=== PATIENT | female | born 1985 | race Caucasian/White ===

== ENCOUNTER 2019-03-21 14:40 | Emergency (ER) | payer MEDICAID, OTHER ==
[~2019-03-21] VITALS: Ht 162.6 cm; Wt 90.9 kg
[~2019-03-21 14:40] MED LIST: CHOL200059 PO; FLUT16H NASAL; OLAN10TA6 PO
[2019-03-21 15:34] LABS: BASOPHILS % (AUTO) 0.4 % (0.0-2.0); EOSINOPHILS % (AUTO) 2.7 % (1.0-6.0); HEMATOCRIT 37.9 % (36-46); HEMOGLOBIN 12.9 g/dL (12.0-16.0); LYMPHOCYTES # (AUTO) 2.3 K/uL (1.0-4.8); LYMPHOCYTES % (AUTO) 28.6 % (22.0-44.0); MEAN CORPUSCULAR HEMOGLOBIN 31.4 pg (26.0-34.0); MEAN CORPUSCULAR HGB CONC 34.1 G/dL (31.0-37.0); MEAN CORPUSCULAR VOLUME 92 fL (80-100); MONOCYTES # (AUTO) 0.7 K/uL (0.1-1.0); MONOCYTES % (AUTO) 8.7 % (2.0-9.0); NEUTROPHILS # (AUTO) 4.8 K/uL (1.8-7.7); NEUTROPHILS % (AUTO) 59.6 % (40.0-70.0); PLATELET COUNT (AUTO) 216 K/uL (150-450); RED BLOOD CELL COUNT(AUTO) 4.12 MIL/uL (4.00-5.20); RED CELL DISTRIBUTION WIDTH 12.4 % (11.5-14.5)
[2019-03-21 15:44] LABS: ANION GAP 8 mmol/L (8-16); CARBON DIOXIDE 26 mmol/L (22-29); CHLORIDE 104 mmol/L (98-107); CREATININE 0.79 mg/dL (0.60-1.30); GLOMERULAR FILTR. RATE CALC > 60 mL/min (>60); GLUCOSE,RANDOM 113 mg/dL (70-110); POTASSIUM 3.8 mmol/L (3.5-5.1); SODIUM SERUM 138 mmol/L (136-145); UREA NITROGEN, BLOOD 14 mg/dL (7-18)
[2019-03-21 15:57] LABS: ALANINE AMINOTRANSFERASE 14 U/L (12-78); ALKALINE PHOSPHATASE 70 U/L (46-116); ASPARTATE AMINOTRANSFERASE 12 U/L (15-37); BILIRUBIN,TOTAL 0.2 mg/dL (0.1-1.0); HCG,QUANTITATIVE < 1 mIU/mL (0-6)
[2019-03-21 20:51] VITALS: BP 102/67
== END 2019-03-21 21:15 | disposition home or self-care (01) ==
LOC: EMS 14:42
DX: L03.114 Cellulitis of left upper limb (principal); E78.00 Pure hypercholesterolemia, unspecified; E03.9 Hypothyroidism, unspecified; F20.9 Schizophrenia, unspecified; F17.210 Nicotine dependence, cigarettes, uncomplicated; Z79.899 Other long term (current) drug therapy
CPT/HCPCS: 36415; 80053; 84702; 85025; 99284; G0480

== ENCOUNTER 2019-12-26 10:46 | Inpatient (IN) | payer MEDICAID ==
[~2019-12-26 10:46] MED LIST changes: +CHOL200016 PO; -CHOL200059 PO
[2019-12-26] MEDS ORDERED: GLUCAGON,HUMAN RECOMBINANT 1 MG VIAL IM PRN (15:00)
[2019-12-26] MEDS: CHOLECALCIFEROL (VIT D3) 1,000 UNITS [25 MCG] TABLET PO SCH (16:22)
[2019-12-26] MEDS: FLUTICASONE PROPIONATE 50 MCG/SPRAY 16 GM NASAL SPRAY NASAL SCH (16:22)
[2019-12-26 17:09] LABS: GLUCOMETER DEV NAME(LOC) BV3N.; GLUCOSE,POINT OF CARE 133 MG/DL (70-110)
[2019-12-26] MEDS: OLANZapine 10 MG RAPDIS TABLET PO SCH (21:00)
[2019-12-27 05:04] VITALS: BP 124/66
[2019-12-27] MEDS: FLUTICASONE PROPIONATE 50 MCG/SPRAY 16 GM NASAL SPRAY NASAL SCH ×2 (09:00→17:18)
[2019-12-27] MEDS: CHOLECALCIFEROL (VIT D3) 1,000 UNITS [25 MCG] TABLET PO SCH ×2 (09:00→17:18)
[2019-12-27 17:47] LABS: GLUCOMETER DEV NAME(LOC) BV3N.; GLUCOSE,POINT OF CARE 98 MG/DL (70-110)
[2019-12-27] MEDS ORDERED: HALOPERIDOL LACTATE 5 MG/ML VIAL IM PRN (20:30)
[2019-12-27] MEDS: OLANZapine 10 MG RAPDIS TABLET PO SCH (20:51)
[2019-12-28] MEDS: FLUTICASONE PROPIONATE 50 MCG/SPRAY 16 GM NASAL SPRAY NASAL SCH ×2 (09:00→16:51)
[2019-12-28] MEDS: CHOLECALCIFEROL (VIT D3) 1,000 UNITS [25 MCG] TABLET PO SCH ×2 (09:00→16:51)
[2019-12-28] MEDS: OLANZapine 10 MG RAPDIS TABLET PO SCH (21:11)
[2019-12-29] MEDS: FLUTICASONE PROPIONATE 50 MCG/SPRAY 16 GM NASAL SPRAY NASAL SCH ×2 (08:56→16:40)
[2019-12-29] MEDS: CHOLECALCIFEROL (VIT D3) 1,000 UNITS [25 MCG] TABLET PO SCH ×2 (08:56→16:40)
[2019-12-29] MEDS: HALOPERIDOL 5 MG TABLET PO PRN (16:39)
[2019-12-29] MEDS: LORazepam 2 MG TABLET PO PRN (16:39)
[2019-12-29 16:50] LABS: GLUCOMETER DEV NAME(LOC) BV3N.; GLUCOSE,POINT OF CARE 135 MG/DL (70-110)
[2019-12-29] MEDS: OLANZapine 10 MG RAPDIS TABLET PO SCH (21:04)
[2019-12-30] MEDS: CHOLECALCIFEROL (VIT D3) 1,000 UNITS [25 MCG] TABLET PO SCH ×2 (08:38→17:00)
[2019-12-30] MEDS: FLUTICASONE PROPIONATE 50 MCG/SPRAY 16 GM NASAL SPRAY NASAL SCH ×2 (08:38→17:00)
[2019-12-30] MEDS ORDERED: IVERMECTIN 3 MG TABLET PO ONE (09:15)
[2019-12-30] MEDS ORDERED: PERMETHRIN 1% 60 ML LOTION TP ONE (10:15)
[2019-12-30] MEDS: HALOPERIDOL 5 MG TABLET PO PRN (16:58)
[2019-12-30] MEDS: LORazepam 2 MG TABLET PO PRN (16:58)
[2019-12-30] MEDS: OLANZapine 10 MG RAPDIS TABLET PO SCH (20:31)
[2019-12-31 00:30] VITALS: BP 100/71
[2019-12-31] MEDS: FLUTICASONE PROPIONATE 50 MCG/SPRAY 16 GM NASAL SPRAY NASAL SCH ×2 (08:45→17:00)
[2019-12-31] MEDS: CHOLECALCIFEROL (VIT D3) 1,000 UNITS [25 MCG] TABLET PO SCH ×2 (08:46→17:26)
[2019-12-31] MEDS ORDERED: LORazepam 2 MG/ML VIAL IM ONE (16:00)
[2019-12-31] MEDS ORDERED: HALOPERIDOL LACTATE 5 MG/ML VIAL IM ONE (16:00)
[2019-12-31 16:01] VITALS: BP 136/88
[2019-12-31] MEDS ORDERED: PERMETHRIN 1% 60 ML LOTION TP ONE (16:15)
[2019-12-31 17:24] LABS: GLUCOMETER DEV NAME(LOC) BV3N.; GLUCOSE,POINT OF CARE 147 MG/DL (70-110)
[2019-12-31] MEDS: INSULIN LISPRO 100 UNITS/ML SQ PRN (17:26)
[2019-12-31] MEDS: OLANZapine 10 MG RAPDIS TABLET PO SCH (21:24)
[2020-01-01 05:18] VITALS: BP 125/86
[2020-01-01] MEDS: CHOLECALCIFEROL (VIT D3) 1,000 UNITS [25 MCG] TABLET PO SCH ×2 (09:00→16:34)
[2020-01-01] MEDS: FLUTICASONE PROPIONATE 50 MCG/SPRAY 16 GM NASAL SPRAY NASAL SCH ×2 (09:00→16:34)
[2020-01-01] MEDS: INSULIN LISPRO 100 UNITS/ML SQ PRN ×2 (11:17→16:36)
[2020-01-01 12:22] LABS: GLUCOMETER DEV NAME(LOC) BV3N.; GLUCOSE,POINT OF CARE 157 MG/DL (70-110)
[2020-01-01 16:05] VITALS: BP 106/94
[2020-01-01] MEDS: HALOPERIDOL 5 MG TABLET PO PRN (16:34)
[2020-01-01 17:01] LABS: GLUCOMETER DEV NAME(LOC) BV3N.; GLUCOSE,POINT OF CARE 180 MG/DL (70-110)
[2020-01-01] MEDS: OLANZapine 10 MG RAPDIS TABLET PO SCH (20:29)
[2020-01-02] MEDS ORDERED: LORazepam 2 MG/ML VIAL ONE (02:17)
[2020-01-02] MEDS ORDERED: DiphenhydrAMINE HCL 50 MG/ML VIAL ONE (02:17)
[2020-01-02] MEDS ORDERED: LORazepam 2 MG/ML VIAL IM ONE (02:30)
[2020-01-02] MEDS ORDERED: DiphenhydrAMINE HCL 50 MG/ML VIAL IM ONE (02:30)
[2020-01-02] MEDS ORDERED: HALOPERIDOL LACTATE 5 MG/ML VIAL IM ONE (02:30)
[2020-01-02] MEDS: CHOLECALCIFEROL (VIT D3) 1,000 UNITS [25 MCG] TABLET PO SCH ×2 (08:43→17:18)
[2020-01-02] MEDS: FLUTICASONE PROPIONATE 50 MCG/SPRAY 16 GM NASAL SPRAY NASAL SCH ×2 (08:43→17:17)
[2020-01-02] MEDS: HALOPERIDOL 5 MG TABLET PO PRN (17:18)
[2020-01-02 17:31] LABS: GLUCOMETER DEV NAME(LOC) BV3N.; GLUCOSE,POINT OF CARE 104 MG/DL (70-110)
[2020-01-02] MEDS: OLANZapine 10 MG RAPDIS TABLET PO SCH (20:38)
[2020-01-03 03:08] VITALS: BP 103/65
[2020-01-03] MEDS: CHOLECALCIFEROL (VIT D3) 1,000 UNITS [25 MCG] TABLET PO SCH ×2 (08:50→17:06)
[2020-01-03] MEDS: FLUTICASONE PROPIONATE 50 MCG/SPRAY 16 GM NASAL SPRAY NASAL SCH ×2 (08:51→17:00)
[2020-01-03] MEDS: LORazepam 2 MG TABLET PO PRN ×2 (10:34→19:10)
[2020-01-03] MEDS: HALOPERIDOL 5 MG TABLET PO PRN ×2 (10:34→19:10)
[2020-01-03 16:10] VITALS: BP 101/74
[2020-01-03] MEDS: OLANZapine 10 MG RAPDIS TABLET PO SCH (20:15)
[2020-01-04 05:23] VITALS: BP 130/83
[2020-01-04] MEDS: CHOLECALCIFEROL (VIT D3) 1,000 UNITS [25 MCG] TABLET PO SCH ×2 (09:00→18:34)
[2020-01-04] MEDS: FLUTICASONE PROPIONATE 50 MCG/SPRAY 16 GM NASAL SPRAY NASAL SCH ×2 (09:00→18:45)
[2020-01-04 09:38] LABS: ALANINE AMINOTRANSFERASE 22 U/L (12-78); ALBUMIN 2.8 g/dL (3.4-5.0); ALKALINE PHOSPHATASE 76 U/L (46-116); ANION GAP 5 mmol/L (8-16); ASPARTATE AMINOTRANSFERASE 18 U/L (15-37); CALCIUM, TOTAL 8.8 mg/dL (8.8-10.5); CARBON DIOXIDE 27 mmol/L (22-29); CHLORIDE 102 mmol/L (98-107); CREATININE 0.73 mg/dL (0.60-1.30); GLOMERULAR FILTR. RATE CALC > 60 mL/min (>60); GLUCOSE,RANDOM 177 mg/dL (70-110); POTASSIUM 4.3 mmol/L (3.5-5.1); SODIUM SERUM 134 mmol/L (136-145); TOTAL PROTEIN, SERUM 6.6 g/dL (6.4-8.2); UREA NITROGEN, BLOOD 10 mg/dL (7-18)
[2020-01-04 10:18] LABS: BILIRUBIN,TOTAL 0.1 mg/dL (0.1-1.0)
[2020-01-04] MEDS ORDERED: LORazepam 2 MG/ML VIAL ONE (18:27)
[2020-01-04] MEDS ORDERED: LORazepam 2 MG/ML VIAL IM ONE (18:30)
[2020-01-04] MEDS ORDERED: DiphenhydrAMINE HCL 50 MG/ML VIAL IM ONE (18:30)
[2020-01-04] MEDS ORDERED: HALOPERIDOL LACTATE 5 MG/ML VIAL IM ONE (18:30)
[2020-01-04] MEDS: LORazepam 2 MG TABLET PO PRN (18:32)
[2020-01-04] MEDS: HALOPERIDOL 5 MG TABLET PO PRN (18:35)
[2020-01-04] MEDS: OLANZapine 10 MG RAPDIS TABLET PO SCH (20:43)
[2020-01-05 05:28] VITALS: BP 120/68
[2020-01-05] MEDS: CHOLECALCIFEROL (VIT D3) 1,000 UNITS [25 MCG] TABLET PO SCH ×2 (09:52→16:18)
[2020-01-05] MEDS: FLUTICASONE PROPIONATE 50 MCG/SPRAY 16 GM NASAL SPRAY NASAL SCH ×2 (09:54→16:18)
[2020-01-05] MEDS: HALOPERIDOL 5 MG TABLET PO PRN (16:18)
[2020-01-05] MEDS: LORazepam 2 MG TABLET PO PRN (16:18)
[2020-01-05] MEDS: ZOLPIDEM TARTRATE 10 MG TABLET PO PRN (20:34)
[2020-01-05] MEDS: OLANZapine 10 MG RAPDIS TABLET PO SCH (20:34)
[2020-01-06 00:10] VITALS: BP 113/68
[2020-01-06 08:07] VITALS: BP 104/65
[2020-01-06] MEDS: CHOLECALCIFEROL (VIT D3) 1,000 UNITS [25 MCG] TABLET PO SCH ×2 (08:39→16:49)
[2020-01-06] MEDS: FLUTICASONE PROPIONATE 50 MCG/SPRAY 16 GM NASAL SPRAY NASAL SCH ×2 (08:40→16:49)
[2020-01-06 16:15] VITALS: BP 115/75
[2020-01-06] MEDS: HALOPERIDOL 5 MG TABLET PO PRN (16:19)
[2020-01-06] MEDS: LORazepam 2 MG TABLET PO PRN (16:19)
[2020-01-06] MEDS: OLANZapine 10 MG RAPDIS TABLET PO SCH (20:57)
[2020-01-07 00:25] VITALS: BP 104/72
[2020-01-07] MEDS: ZOLPIDEM TARTRATE 10 MG TABLET PO PRN (01:39)
[2020-01-07] MEDS: LORazepam 2 MG TABLET PO PRN (01:39)
[2020-01-07] MEDS: FLUTICASONE PROPIONATE 50 MCG/SPRAY 16 GM NASAL SPRAY NASAL SCH ×2 (09:00→17:02)
[2020-01-07] MEDS: CHOLECALCIFEROL (VIT D3) 1,000 UNITS [25 MCG] TABLET PO SCH ×2 (09:00→17:02)
[2020-01-07] MEDS: OLANZapine 10 MG RAPDIS TABLET PO SCH (20:40)
[2020-01-08 05:06] VITALS: BP 101/68
[2020-01-08 07:56] LABS: BASOPHILS % (AUTO) 0.5 % (0.0-2.0); EOSINOPHILS % (AUTO) 3.9 % (1.0-6.0); HEMATOCRIT 40.5 % (36-46); HEMOGLOBIN 13.5 g/dL (12.0-16.0); MEAN CORPUSCULAR HEMOGLOBIN 28.7 pg (26.0-34.0); MEAN CORPUSCULAR HGB CONC 33.3 G/dL (31.0-37.0); MEAN CORPUSCULAR VOLUME 86 fL (80-100); MONOCYTES # (AUTO) 0.5 K/uL (0.1-1.0); MONOCYTES % (AUTO) 5.7 % (2.0-9.0); NEUTROPHILS # (AUTO) 4.9 K/uL (1.8-7.7); NEUTROPHILS % (AUTO) 55.9 % (40.0-70.0); PLATELET COUNT (AUTO) 369 K/uL (150-450); RED CELL DISTRIBUTION WIDTH 13.1 % (11.5-14.5)
[2020-01-08 08:14] LABS: APPEARANCE,URINE CLOUDY (CLEAR); BILIRUBIN,URINE NEGATIVE (NEGATIVE); GLUCOSE, URINE (UA) NEGATIVE (NEGATIVE); KETONES,URINE NEGATIVE (NEGATIVE); LEUKOCYTE ESTERASE ,URINE TRACE (NEGATIVE); NITRATE,URINE NEGATIVE (NEGATIVE); OCCULT BLOOD,URINE NEGATIVE (NEGATIVE); PH,URINE 7.5 (5.0-8.0); PROTEIN,URINE NEGATIVE (NEGATIVE); UROBILINOGEN,URINE 0.2 mg/dL (<=1.0)
[2020-01-08 08:21] LABS: AMPHET/METH SCREEN,URINE NEGATIVE (NEGATIVE); BARBITURATE SCREEN, URINE NEGATIVE (NEGATIVE); BENZODIAZEPINES SCREEN,URINE NEGATIVE (NEGATIVE); CANNABINOID SCREEN,URINE NEGATIVE (NEGATIVE); COCAINE SCREEN,URINE NEGATIVE (NEGATIVE); METHADONE SCREEN, URINE NEGATIVE (NEGATIVE); OPIATE SCREEN,URINE NEGATIVE (NEGATIVE)
[2020-01-08 08:23] LABS: PHENCYCLIDINE SCREEN,URINE NEGATIVE (NEGATIVE)
[2020-01-08] MEDS: FLUTICASONE PROPIONATE 50 MCG/SPRAY 16 GM NASAL SPRAY NASAL SCH ×3 (09:00→16:36)
[2020-01-08] MEDS: CHOLECALCIFEROL (VIT D3) 1,000 UNITS [25 MCG] TABLET PO SCH ×3 (09:00→16:36)
[2020-01-08 09:01] LABS: BACTERIA,URINE None Seen /HPF (None Seen); RBC,URINE None Seen /HPF (0-2); WBC,URINE 0-2 /HPF (0-5)
[2020-01-08] MEDS: LORazepam 2 MG TABLET PO PRN (12:20)
[2020-01-08 16:34] VITALS: BP 103/67
[2020-01-08] MEDS: OLANZapine 10 MG RAPDIS TABLET PO SCH (20:55)
[2020-01-09 04:18] VITALS: BP 100/62
[2020-01-09] MEDS: FLUTICASONE PROPIONATE 50 MCG/SPRAY 16 GM NASAL SPRAY NASAL SCH ×2 (09:36→16:13)
[2020-01-09] MEDS: NITROFURANTOIN/NITROFURAN MAC 100 MG CAPSULE [MACROBID] PO SCH ×2 (09:37→16:13)
[2020-01-09] MEDS: CHOLECALCIFEROL (VIT D3) 1,000 UNITS [25 MCG] TABLET PO SCH ×2 (09:37→16:13)
[2020-01-09] MEDS: LORazepam 2 MG TABLET PO PRN ×2 (09:42→16:14)
[2020-01-09] MEDS: HALOPERIDOL 5 MG TABLET PO PRN (16:14)
[2020-01-09 18:50] VITALS: BP 107/57
[2020-01-09 19:00] VITALS: BP 105/60
[2020-01-09 20:00] VITALS: BP 107/63
[2020-01-09] MEDS: OLANZapine 10 MG RAPDIS TABLET PO SCH (20:52)
[2020-01-10] MEDS: LORazepam 2 MG TABLET PO PRN ×2 (02:46→13:14)
[2020-01-10 05:21] VITALS: BP 129/69
[2020-01-10 08:18] VITALS: BP 109/69
[2020-01-10] MEDS: NITROFURANTOIN/NITROFURAN MAC 100 MG CAPSULE [MACROBID] PO SCH ×2 (08:59→16:10)
[2020-01-10] MEDS: CHOLECALCIFEROL (VIT D3) 1,000 UNITS [25 MCG] TABLET PO SCH ×2 (09:01→16:10)
[2020-01-10] MEDS: FLUTICASONE PROPIONATE 50 MCG/SPRAY 16 GM NASAL SPRAY NASAL SCH ×2 (09:02→16:11)
[2020-01-10 10:16] VITALS: BP 109/69
[2020-01-10 16:09] VITALS: BP 112/71
[2020-01-10] MEDS ORDERED: TUBERCULIN, PURIFIED PROTEIN DERIVATIVE 5 TU/0.1 ML SYRINGE ID ONE (16:15)
[2020-01-10] MEDS: OLANZapine 10 MG RAPDIS TABLET PO SCH (20:00)
[2020-01-11 00:55] VITALS: BP 123/63
[2020-01-11 09:00] VITALS: BP 106/62
[2020-01-11] MEDS: FLUTICASONE PROPIONATE 50 MCG/SPRAY 16 GM NASAL SPRAY NASAL SCH ×2 (09:00→16:27)
[2020-01-11] MEDS: NITROFURANTOIN/NITROFURAN MAC 100 MG CAPSULE [MACROBID] PO SCH ×2 (09:42→16:24)
[2020-01-11] MEDS: CHOLECALCIFEROL (VIT D3) 1,000 UNITS [25 MCG] TABLET PO SCH ×2 (09:42→16:24)
[2020-01-11] MEDS: LORazepam 2 MG TABLET PO PRN (09:54)
[2020-01-11 16:20] VITALS: BP 102/59
[2020-01-11] MEDS: OLANZapine 10 MG RAPDIS TABLET PO SCH (20:06)
[2020-01-12 04:29] VITALS: BP 128/84
[2020-01-12] MEDS ORDERED: TUBERCULIN, PURIFIED PROTEIN DERIVATIVE 5 TU/0.1 ML SYRINGE ID ONE (09:00)
[2020-01-12] MEDS: CHOLECALCIFEROL (VIT D3) 1,000 UNITS [25 MCG] TABLET PO SCH ×2 (09:34→16:19)
[2020-01-12] MEDS: FLUTICASONE PROPIONATE 50 MCG/SPRAY 16 GM NASAL SPRAY NASAL SCH ×2 (09:37→16:22)
[2020-01-12] MEDS: NITROFURANTOIN/NITROFURAN MAC 100 MG CAPSULE [MACROBID] PO SCH ×2 (09:37→16:20)
[2020-01-12] MEDS: LORazepam 2 MG TABLET PO PRN ×2 (09:39→16:18)
[2020-01-12] MEDS: HALOPERIDOL 5 MG TABLET PO PRN (16:18)
[2020-01-12 16:20] VITALS: BP 121/60
[2020-01-12] MEDS: ZOLPIDEM TARTRATE 10 MG TABLET PO PRN (20:50)
[2020-01-12] MEDS: OLANZapine 10 MG RAPDIS TABLET PO SCH (20:50)
[2020-01-13] MEDS: LORazepam 2 MG TABLET PO PRN ×2 (01:10→16:28)
[2020-01-13] MEDS: HALOPERIDOL 5 MG TABLET PO PRN ×2 (01:10→16:28)
[2020-01-13 02:27] VITALS: BP 112/64
[2020-01-13] MEDS: NITROFURANTOIN/NITROFURAN MAC 100 MG CAPSULE [MACROBID] PO SCH ×2 (08:41→16:28)
[2020-01-13] MEDS: FLUTICASONE PROPIONATE 50 MCG/SPRAY 16 GM NASAL SPRAY NASAL SCH ×2 (08:42→16:28)
[2020-01-13] MEDS: CHOLECALCIFEROL (VIT D3) 1,000 UNITS [25 MCG] TABLET PO SCH ×2 (08:42→16:27)
[2020-01-13 16:25] VITALS: BP 102/56
[2020-01-13] MEDS: OLANZapine 10 MG RAPDIS TABLET PO SCH (20:45)
[2020-01-13] MEDS: ZOLPIDEM TARTRATE 10 MG TABLET PO PRN (20:45)
[2020-01-14] MEDS: LORazepam 2 MG TABLET PO PRN ×2 (01:55→13:54)
[2020-01-14] MEDS: HALOPERIDOL 5 MG TABLET PO PRN (01:55)
[2020-01-14 04:54] VITALS: BP 124/63
[2020-01-14] MEDS: FLUTICASONE PROPIONATE 50 MCG/SPRAY 16 GM NASAL SPRAY NASAL SCH ×2 (09:20→16:34)
[2020-01-14] MEDS: CHOLECALCIFEROL (VIT D3) 1,000 UNITS [25 MCG] TABLET PO SCH ×2 (09:20→16:34)
[2020-01-14 16:06] VITALS: BP 106/74
[2020-01-14] MEDS: OLANZapine 10 MG RAPDIS TABLET PO SCH (20:06)
[2020-01-15 04:22] VITALS: BP 134/74
[2020-01-15] MEDS: LORazepam 2 MG TABLET PO PRN ×2 (08:17→16:11)
[2020-01-15] MEDS: FLUTICASONE PROPIONATE 50 MCG/SPRAY 16 GM NASAL SPRAY NASAL SCH ×2 (08:18→16:10)
[2020-01-15] MEDS: CHOLECALCIFEROL (VIT D3) 1,000 UNITS [25 MCG] TABLET PO SCH ×2 (08:19→16:11)
[2020-01-15] MEDS: HALOPERIDOL 5 MG TABLET PO PRN (16:11)
[2020-01-15 17:02] VITALS: BP 111/63
[2020-01-15] MEDS: ZOLPIDEM TARTRATE 10 MG TABLET PO PRN (20:31)
[2020-01-15] MEDS: OLANZapine 10 MG RAPDIS TABLET PO SCH (20:31)
[2020-01-16 02:50] VITALS: BP 120/78
[2020-01-16] MEDS: CHOLECALCIFEROL (VIT D3) 1,000 UNITS [25 MCG] TABLET PO SCH ×2 (08:54→16:35)
[2020-01-16] MEDS: LORazepam 2 MG TABLET PO PRN ×2 (08:55→16:54)
[2020-01-16] MEDS: FLUTICASONE PROPIONATE 50 MCG/SPRAY 16 GM NASAL SPRAY NASAL SCH ×2 (08:55→16:35)
[2020-01-16 16:13] VITALS: BP 123/79
[2020-01-16] MEDS: OLANZapine 10 MG RAPDIS TABLET PO SCH (20:31)
[2020-01-17 00:53] VITALS: BP 118/72
[2020-01-17] MEDS: CHOLECALCIFEROL (VIT D3) 1,000 UNITS [25 MCG] TABLET PO SCH ×2 (09:34→17:18)
[2020-01-17] MEDS: FLUTICASONE PROPIONATE 50 MCG/SPRAY 16 GM NASAL SPRAY NASAL SCH ×2 (09:34→17:19)
[2020-01-17 16:38] VITALS: BP 113/73
[2020-01-17] MEDS: LORazepam 2 MG TABLET PO PRN (17:19)
[2020-01-17] MEDS: HALOPERIDOL 5 MG TABLET PO PRN (17:19)
[2020-01-17] MEDS: OLANZapine 10 MG RAPDIS TABLET PO SCH (20:20)
[2020-01-17] MEDS: ZOLPIDEM TARTRATE 10 MG TABLET PO PRN (21:30)
[2020-01-18 01:51] VITALS: BP 127/79
[2020-01-18] MEDS: FLUTICASONE PROPIONATE 50 MCG/SPRAY 16 GM NASAL SPRAY NASAL SCH ×2 (08:55→17:05)
[2020-01-18] MEDS: CHOLECALCIFEROL (VIT D3) 1,000 UNITS [25 MCG] TABLET PO SCH ×2 (08:55→17:04)
[2020-01-18] MEDS: LORazepam 2 MG TABLET PO PRN ×2 (08:55→17:04)
[2020-01-18] MEDS: HALOPERIDOL 5 MG TABLET PO PRN ×2 (09:53→17:47)
[2020-01-18 16:26] VITALS: BP 123/71
[2020-01-18] MEDS: ZOLPIDEM TARTRATE 10 MG TABLET PO PRN (21:13)
[2020-01-18] MEDS: OLANZapine 10 MG RAPDIS TABLET PO SCH (21:13)
[2020-01-19 01:03] VITALS: BP 112/78
[2020-01-19 08:44] VITALS: BP 119/73
[2020-01-19] MEDS: LORazepam 2 MG TABLET PO PRN (10:07)
[2020-01-19] MEDS: CHOLECALCIFEROL (VIT D3) 1,000 UNITS [25 MCG] TABLET PO SCH ×2 (10:07→17:09)
[2020-01-19] MEDS: FLUTICASONE PROPIONATE 50 MCG/SPRAY 16 GM NASAL SPRAY NASAL SCH ×2 (10:07→17:09)
[2020-01-19] MEDS: HALOPERIDOL 5 MG TABLET PO PRN (17:09)
[2020-01-19] MEDS: OLANZapine 10 MG RAPDIS TABLET PO SCH (20:47)
[2020-01-20 01:24] VITALS: BP 138/60
[2020-01-20 08:32] VITALS: BP 118/79
[2020-01-20] MEDS: CHOLECALCIFEROL (VIT D3) 1,000 UNITS [25 MCG] TABLET PO SCH ×2 (09:21→16:49)
[2020-01-20] MEDS: LORazepam 2 MG TABLET PO PRN (09:21)
[2020-01-20] MEDS: FLUTICASONE PROPIONATE 50 MCG/SPRAY 16 GM NASAL SPRAY NASAL SCH ×2 (09:33→16:50)
[2020-01-20 16:13] VITALS: BP 119/84
[2020-01-20] MEDS: OLANZapine 10 MG RAPDIS TABLET PO SCH (20:41)
[2020-01-21 01:19] VITALS: BP 111/64
[2020-01-21] MEDS: CHOLECALCIFEROL (VIT D3) 1,000 UNITS [25 MCG] TABLET PO SCH ×2 (09:00→16:22)
[2020-01-21] MEDS: FLUTICASONE PROPIONATE 50 MCG/SPRAY 16 GM NASAL SPRAY NASAL SCH ×2 (09:00→16:22)
[2020-01-21] MEDS: HALOPERIDOL 5 MG TABLET PO PRN ×3 (09:53→20:02)
[2020-01-21 17:34] VITALS: BP 102/67
[2020-01-21] MEDS: OLANZapine 10 MG RAPDIS TABLET PO SCH (20:02)
[2020-01-22 06:07] VITALS: BP 124/76
[2020-01-22 08:00] VITALS: BP 120/82
[2020-01-22] MEDS: CHOLECALCIFEROL (VIT D3) 1,000 UNITS [25 MCG] TABLET PO SCH ×2 (08:45→16:06)
[2020-01-22] MEDS: FLUTICASONE PROPIONATE 50 MCG/SPRAY 16 GM NASAL SPRAY NASAL SCH ×2 (08:45→16:11)
[2020-01-22] MEDS: HALOPERIDOL 5 MG TABLET PO PRN ×2 (08:45→16:06)
[2020-01-22 16:17] VITALS: BP 134/63
[2020-01-22] MEDS ORDERED: LORazepam 2 MG/ML VIAL ONE (18:13)
[2020-01-22] MEDS ORDERED: DiphenhydrAMINE HCL 50 MG/ML VIAL ONE (18:14)
[2020-01-22] MEDS ORDERED: LORazepam 2 MG/ML VIAL IM ONE (18:15)
[2020-01-22] MEDS ORDERED: DiphenhydrAMINE HCL 50 MG/ML VIAL IM ONE (18:15)
[2020-01-22] MEDS ORDERED: HALOPERIDOL LACTATE 5 MG/ML VIAL IM ONE (18:15)
[2020-01-22] MEDS: OLANZapine 10 MG RAPDIS TABLET PO SCH (20:32)
[2020-01-23 00:57] VITALS: BP 135/70
[2020-01-23] MEDS: CHOLECALCIFEROL (VIT D3) 1,000 UNITS [25 MCG] TABLET PO SCH ×2 (09:00→16:41)
[2020-01-23] MEDS: FLUTICASONE PROPIONATE 50 MCG/SPRAY 16 GM NASAL SPRAY NASAL SCH ×2 (09:00→16:40)
[2020-01-23] MEDS: HALOPERIDOL 5 MG TABLET PO PRN ×3 (09:40→20:42)
[2020-01-23 17:16] VITALS: BP 99/60
[2020-01-23 19:45] VITALS: BP 106/75
[2020-01-23] MEDS: OLANZapine 10 MG RAPDIS TABLET PO SCH (20:12)
[2020-01-24 03:26] VITALS: BP 116/77
[2020-01-24] MEDS: CHOLECALCIFEROL (VIT D3) 1,000 UNITS [25 MCG] TABLET PO SCH ×2 (09:00→16:45)
[2020-01-24] MEDS: FLUTICASONE PROPIONATE 50 MCG/SPRAY 16 GM NASAL SPRAY NASAL SCH ×2 (09:00→16:45)
[2020-01-24] MEDS: HALOPERIDOL 5 MG TABLET PO PRN ×3 (12:31→22:11)
[2020-01-24] MEDS: NICOTINE 21 MG/24 HOUR PATCH TD PRN (18:12)
[2020-01-24 18:15] VITALS: BP 113/72
[2020-01-24] MEDS: OLANZapine 10 MG RAPDIS TABLET PO SCH (20:35)
[2020-01-25] MEDS: HALOPERIDOL 5 MG TABLET PO PRN ×2 (02:27→18:17)
[2020-01-25 04:41] VITALS: BP 114/73
[2020-01-25] MEDS: CHOLECALCIFEROL (VIT D3) 1,000 UNITS [25 MCG] TABLET PO SCH ×2 (08:28→17:17)
[2020-01-25] MEDS: FLUTICASONE PROPIONATE 50 MCG/SPRAY 16 GM NASAL SPRAY NASAL SCH ×2 (08:29→17:17)
[2020-01-25 10:22] VITALS: BP 123/78
[2020-01-25 18:03] VITALS: BP 126/66
[2020-01-25] MEDS: NICOTINE 21 MG/24 HOUR PATCH TD PRN (19:18)
[2020-01-25] MEDS: OLANZapine 10 MG RAPDIS TABLET PO SCH (21:29)
[2020-01-26 04:45] VITALS: BP 116/68
[2020-01-26 08:36] VITALS: BP 134/62
[2020-01-26] MEDS: CHOLECALCIFEROL (VIT D3) 1,000 UNITS [25 MCG] TABLET PO SCH ×2 (10:11→16:28)
[2020-01-26] MEDS: FLUTICASONE PROPIONATE 50 MCG/SPRAY 16 GM NASAL SPRAY NASAL SCH ×2 (10:11→16:29)
[2020-01-26] MEDS: HALOPERIDOL 5 MG TABLET PO PRN ×3 (10:12→20:32)
[2020-01-26 18:33] VITALS: BP 138/79
[2020-01-26] MEDS: OLANZapine 10 MG RAPDIS TABLET PO SCH (20:32)
[2020-01-27 04:30] VITALS: BP 128/76
[2020-01-27 08:37] VITALS: BP 116/74
[2020-01-27] MEDS: FLUTICASONE PROPIONATE 50 MCG/SPRAY 16 GM NASAL SPRAY NASAL SCH ×2 (08:51→17:24)
[2020-01-27] MEDS: CHOLECALCIFEROL (VIT D3) 1,000 UNITS [25 MCG] TABLET PO SCH ×2 (08:52→17:24)
[2020-01-27] MEDS: HALOPERIDOL 5 MG TABLET PO PRN ×2 (08:53→17:25)
[2020-01-27 16:18] VITALS: BP 110/66
[2020-01-27] MEDS ORDERED: DiphenhydrAMINE HCL 50 MG/ML VIAL IM ONE (17:15)
[2020-01-27] MEDS ORDERED: LORazepam 2 MG/ML VIAL IM ONE (17:15)
[2020-01-27] MEDS ORDERED: HALOPERIDOL LACTATE 5 MG/ML VIAL IM ONE (17:15)
[2020-01-27] MEDS: OLANZapine 10 MG RAPDIS TABLET PO SCH (20:24)
[2020-01-28 02:21] VITALS: BP 120/68
[2020-01-28 08:40] VITALS: BP 122/76
[2020-01-28] MEDS: CHOLECALCIFEROL (VIT D3) 1,000 UNITS [25 MCG] TABLET PO SCH ×2 (09:00→17:56)
[2020-01-28] MEDS: FLUTICASONE PROPIONATE 50 MCG/SPRAY 16 GM NASAL SPRAY NASAL SCH ×2 (09:00→22:10)
[2020-01-28 17:55] VITALS: BP 124/67
[2020-01-28] MEDS: OLANZapine 10 MG RAPDIS TABLET PO SCH (21:06)
[2020-01-29 04:53] VITALS: BP 120/72
[2020-01-29] MEDS: CHOLECALCIFEROL (VIT D3) 1,000 UNITS [25 MCG] TABLET PO SCH ×2 (08:47→16:35)
[2020-01-29] MEDS: FLUTICASONE PROPIONATE 50 MCG/SPRAY 16 GM NASAL SPRAY NASAL SCH ×2 (08:47→17:18)
[2020-01-29] MEDS: HALOPERIDOL 5 MG TABLET PO PRN ×2 (16:35→20:16)
[2020-01-29 16:56] VITALS: BP 113/64
[2020-01-29] MEDS: OLANZapine 10 MG RAPDIS TABLET PO SCH (20:16)
[2020-01-30 05:06] VITALS: BP 111/76
[2020-01-30] MEDS: FLUTICASONE PROPIONATE 50 MCG/SPRAY 16 GM NASAL SPRAY NASAL SCH ×2 (09:00→16:29)
[2020-01-30] MEDS: CHOLECALCIFEROL (VIT D3) 1,000 UNITS [25 MCG] TABLET PO SCH ×2 (09:00→16:29)
[2020-01-30] MEDS: HALOPERIDOL 5 MG TABLET PO PRN ×3 (13:27→23:47)
[2020-01-30 16:12] VITALS: BP 113/53
[2020-01-30] MEDS ORDERED: LORazepam 2 MG/ML VIAL ONE (19:04)
[2020-01-30] MEDS ORDERED: DiphenhydrAMINE HCL 50 MG/ML VIAL ONE (19:04)
[2020-01-30] MEDS ORDERED: DiphenhydrAMINE HCL 50 MG/ML VIAL IM ONE (19:15)
[2020-01-30] MEDS ORDERED: LORazepam 2 MG/ML VIAL IM ONE (19:15)
[2020-01-30] MEDS ORDERED: HALOPERIDOL LACTATE 5 MG/ML VIAL IM ONE (19:15)
[2020-01-30] MEDS: OLANZapine 10 MG RAPDIS TABLET PO SCH (21:07)
[2020-01-31 08:25] VITALS: BP 121/68
[2020-01-31] MEDS: CHOLECALCIFEROL (VIT D3) 1,000 UNITS [25 MCG] TABLET PO SCH ×2 (08:51→18:00)
[2020-01-31] MEDS: HALOPERIDOL 5 MG TABLET PO PRN ×2 (08:52→18:00)
[2020-01-31] MEDS: FLUTICASONE PROPIONATE 50 MCG/SPRAY 16 GM NASAL SPRAY NASAL SCH ×2 (08:52→17:59)
[2020-01-31 18:05] VITALS: BP 109/55
[2020-01-31] MEDS: ACETAMINOPHEN 325 MG TABLET PO PRN (18:19)
[2020-01-31] MEDS: OLANZapine 10 MG RAPDIS TABLET PO SCH (21:26)
[2020-02-01 03:22] VITALS: BP 102/68
[2020-02-01] MEDS: CHOLECALCIFEROL (VIT D3) 1,000 UNITS [25 MCG] TABLET PO SCH ×2 (09:00→16:08)
[2020-02-01] MEDS: FLUTICASONE PROPIONATE 50 MCG/SPRAY 16 GM NASAL SPRAY NASAL SCH ×2 (09:13→16:08)
[2020-02-01] MEDS: HALOPERIDOL 5 MG TABLET PO PRN ×2 (12:23→19:55)
[2020-02-01 17:39] VITALS: BP 100/67
[2020-02-01] MEDS: OLANZapine 10 MG RAPDIS TABLET PO SCH (20:31)
[2020-02-02 03:22] VITALS: BP 99/68
[2020-02-02 08:20] VITALS: BP 121/64
[2020-02-02] MEDS: CHOLECALCIFEROL (VIT D3) 1,000 UNITS [25 MCG] TABLET PO SCH ×2 (09:40→16:51)
[2020-02-02] MEDS: FLUTICASONE PROPIONATE 50 MCG/SPRAY 16 GM NASAL SPRAY NASAL SCH ×2 (09:41→16:51)
[2020-02-02 16:00] VITALS: BP 102/66
[2020-02-02] MEDS: HALOPERIDOL 5 MG TABLET PO PRN (16:51)
[2020-02-02] MEDS: OLANZapine 10 MG RAPDIS TABLET PO SCH (20:17)
[2020-02-03] MEDS: HALOPERIDOL 5 MG TABLET PO PRN ×2 (00:07→14:37)
[2020-02-03 00:27] VITALS: BP 108/60
[2020-02-03 08:21] VITALS: BP 113/71
[2020-02-03] MEDS: FLUTICASONE PROPIONATE 50 MCG/SPRAY 16 GM NASAL SPRAY NASAL SCH ×2 (09:00→16:20)
[2020-02-03] MEDS: CHOLECALCIFEROL (VIT D3) 1,000 UNITS [25 MCG] TABLET PO SCH ×2 (09:00→16:20)
[2020-02-03] MEDS: NICOTINE 21 MG/24 HOUR PATCH TD PRN (14:56)
[2020-02-03 16:29] VITALS: BP 132/92
[2020-02-03] MEDS: OLANZapine 10 MG RAPDIS TABLET PO SCH (20:16)
[2020-02-04] MEDS: HALOPERIDOL 5 MG TABLET PO PRN ×2 (01:47→09:25)
[2020-02-04 02:14] VITALS: BP 109/69
[2020-02-04 08:16] VITALS: BP 109/66
[2020-02-04] MEDS: FLUTICASONE PROPIONATE 50 MCG/SPRAY 16 GM NASAL SPRAY NASAL SCH ×2 (09:02→16:29)
[2020-02-04] MEDS: CHOLECALCIFEROL (VIT D3) 1,000 UNITS [25 MCG] TABLET PO SCH ×2 (09:02→16:29)
[2020-02-04] MEDS: NICOTINE 21 MG/24 HOUR PATCH TD PRN (10:13)
[2020-02-04 16:18] VITALS: BP 133/81
[2020-02-04] MEDS: OLANZapine 10 MG RAPDIS TABLET PO SCH (20:56)
[2020-02-05 01:39] VITALS: BP 123/64
[2020-02-05] MEDS: CHOLECALCIFEROL (VIT D3) 1,000 UNITS [25 MCG] TABLET PO SCH ×3 (08:15→16:23)
[2020-02-05] MEDS: FLUTICASONE PROPIONATE 50 MCG/SPRAY 16 GM NASAL SPRAY NASAL SCH ×3 (08:16→16:24)
[2020-02-05 18:00] VITALS: BP 120/70
[2020-02-05] MEDS: OLANZapine 10 MG RAPDIS TABLET PO SCH (21:19)
[2020-02-06 04:48] VITALS: BP 104/67
[2020-02-06 08:25] VITALS: BP 118/72
[2020-02-06] MEDS: CHOLECALCIFEROL (VIT D3) 1,000 UNITS [25 MCG] TABLET PO SCH ×2 (09:00→16:34)
[2020-02-06] MEDS: HALOPERIDOL 5 MG TABLET PO PRN ×2 (09:11→14:25)
[2020-02-06] MEDS: FLUTICASONE PROPIONATE 50 MCG/SPRAY 16 GM NASAL SPRAY NASAL SCH ×2 (09:11→16:34)
[2020-02-06 16:13] VITALS: BP 106/69
[2020-02-06] MEDS: OLANZapine 10 MG RAPDIS TABLET PO SCH (20:31)
[2020-02-07 01:19] VITALS: BP 101/63
[2020-02-07] MEDS: FLUTICASONE PROPIONATE 50 MCG/SPRAY 16 GM NASAL SPRAY NASAL SCH ×2 (09:29→17:14)
[2020-02-07] MEDS: CHOLECALCIFEROL (VIT D3) 1,000 UNITS [25 MCG] TABLET PO SCH ×2 (09:29→17:13)
[2020-02-07] MEDS: HALOPERIDOL 5 MG TABLET PO PRN (10:42)
[2020-02-07 16:00] VITALS: BP 117/79
[2020-02-07] MEDS: OLANZapine 10 MG RAPDIS TABLET PO SCH (20:24)
[2020-02-08 05:40] VITALS: BP 105/63
[2020-02-08 08:24] VITALS: BP 118/74
[2020-02-08] MEDS: FLUTICASONE PROPIONATE 50 MCG/SPRAY 16 GM NASAL SPRAY NASAL SCH ×2 (09:00→17:51)
[2020-02-08] MEDS: CHOLECALCIFEROL (VIT D3) 1,000 UNITS [25 MCG] TABLET PO SCH ×2 (09:00→17:51)
[2020-02-08] MEDS: NICOTINE 21 MG/24 HOUR PATCH TD PRN (13:21)
[2020-02-08 16:13] VITALS: BP 125/88
[2020-02-08] MEDS: OLANZapine 10 MG RAPDIS TABLET PO SCH (20:50)
[2020-02-08] MEDS: HALOPERIDOL 5 MG TABLET PO PRN (23:58)
[2020-02-09 06:44] VITALS: BP 102/65
[2020-02-09] MEDS: FLUTICASONE PROPIONATE 50 MCG/SPRAY 16 GM NASAL SPRAY NASAL SCH ×2 (09:06→17:38)
[2020-02-09] MEDS: CHOLECALCIFEROL (VIT D3) 1,000 UNITS [25 MCG] TABLET PO SCH ×2 (09:07→17:38)
[2020-02-09 09:20] VITALS: BP 112/74
[2020-02-09] MEDS: HALOPERIDOL 5 MG TABLET PO PRN ×3 (10:01→23:08)
[2020-02-09 16:00] VITALS: BP 104/64
[2020-02-09] MEDS: OLANZapine 10 MG RAPDIS TABLET PO SCH (22:20)
[2020-02-10 01:55] VITALS: BP 112/54
[2020-02-10 08:20] VITALS: BP 118/74
[2020-02-10] MEDS: FLUTICASONE PROPIONATE 50 MCG/SPRAY 16 GM NASAL SPRAY NASAL SCH ×2 (08:49→17:16)
[2020-02-10] MEDS: CHOLECALCIFEROL (VIT D3) 1,000 UNITS [25 MCG] TABLET PO SCH ×2 (08:49→17:16)
[2020-02-10] MEDS: HALOPERIDOL 5 MG TABLET PO PRN ×2 (11:00→17:16)
[2020-02-10 17:43] VITALS: BP 125/70
[2020-02-10] MEDS: OLANZapine 10 MG RAPDIS TABLET PO SCH (21:01)
[2020-02-11 02:03] VITALS: BP 122/92
[2020-02-11] MEDS: CHOLECALCIFEROL (VIT D3) 1,000 UNITS [25 MCG] TABLET PO SCH ×2 (08:18→17:36)
[2020-02-11] MEDS: FLUTICASONE PROPIONATE 50 MCG/SPRAY 16 GM NASAL SPRAY NASAL SCH ×2 (08:18→17:36)
[2020-02-11] MEDS: HALOPERIDOL 5 MG TABLET PO PRN (13:56)
[2020-02-11 16:32] VITALS: BP 120/86
[2020-02-11] MEDS: OLANZapine 10 MG RAPDIS TABLET PO SCH (21:15)
[2020-02-12 04:49] VITALS: BP 118/77
[2020-02-12 08:20] VITALS: BP 101/51
[2020-02-12] MEDS: HALOPERIDOL 5 MG TABLET PO PRN (09:21)
[2020-02-12] MEDS: CHOLECALCIFEROL (VIT D3) 1,000 UNITS [25 MCG] TABLET PO SCH ×2 (09:21→16:04)
[2020-02-12] MEDS: FLUTICASONE PROPIONATE 50 MCG/SPRAY 16 GM NASAL SPRAY NASAL SCH ×2 (09:21→16:05)
[2020-02-12 16:27] VITALS: BP 126/86
[2020-02-12] MEDS: OLANZapine 10 MG RAPDIS TABLET PO SCH (20:50)
[2020-02-13 01:28] VITALS: BP 123/64
[2020-02-13] MEDS: CHOLECALCIFEROL (VIT D3) 1,000 UNITS [25 MCG] TABLET PO SCH ×2 (09:31→16:45)
[2020-02-13] MEDS: FLUTICASONE PROPIONATE 50 MCG/SPRAY 16 GM NASAL SPRAY NASAL SCH ×2 (09:32→17:46)
[2020-02-13] MEDS: HALOPERIDOL 5 MG TABLET PO PRN (14:11)
[2020-02-13 16:58] VITALS: BP 111/66
[2020-02-13] MEDS: OLANZapine 10 MG RAPDIS TABLET PO SCH (21:00)
[2020-02-14 01:06] VITALS: BP 124/73
[2020-02-14] MEDS: FLUTICASONE PROPIONATE 50 MCG/SPRAY 16 GM NASAL SPRAY NASAL SCH ×2 (08:19→16:20)
[2020-02-14] MEDS: CHOLECALCIFEROL (VIT D3) 1,000 UNITS [25 MCG] TABLET PO SCH ×2 (08:19→16:20)
[2020-02-14] MEDS: HALOPERIDOL 5 MG TABLET PO PRN ×2 (08:21→16:23)
[2020-02-14 08:25] VITALS: BP 110/69
[2020-02-14 16:14] VITALS: BP 116/62
[2020-02-14] MEDS: OLANZapine 10 MG RAPDIS TABLET PO SCH (20:37)
[2020-02-15 04:15] VITALS: BP 120/72
[2020-02-15] MEDS: FLUTICASONE PROPIONATE 50 MCG/SPRAY 16 GM NASAL SPRAY NASAL SCH ×2 (08:32→16:28)
[2020-02-15] MEDS: CHOLECALCIFEROL (VIT D3) 1,000 UNITS [25 MCG] TABLET PO SCH ×2 (08:32→16:28)
[2020-02-15] MEDS: HALOPERIDOL 5 MG TABLET PO PRN (14:13)
[2020-02-15 16:19] VITALS: BP 122/74
[2020-02-15] MEDS: OLANZapine 10 MG RAPDIS TABLET PO SCH (20:43)
[2020-02-16 03:23] VITALS: BP 100/68
[2020-02-16] MEDS: FLUTICASONE PROPIONATE 50 MCG/SPRAY 16 GM NASAL SPRAY NASAL SCH ×2 (09:00→16:30)
[2020-02-16] MEDS: CHOLECALCIFEROL (VIT D3) 1,000 UNITS [25 MCG] TABLET PO SCH ×2 (09:00→16:30)
[2020-02-16] MEDS: HALOPERIDOL 5 MG TABLET PO PRN (10:44)
[2020-02-16 16:40] VITALS: BP 112/65
[2020-02-16] MEDS: OLANZapine 10 MG RAPDIS TABLET PO SCH (20:46)
[2020-02-17 00:57] VITALS: BP 119/65
[2020-02-17 08:25] VITALS: BP 116/71
[2020-02-17] MEDS: CHOLECALCIFEROL (VIT D3) 1,000 UNITS [25 MCG] TABLET PO SCH ×2 (08:47→16:36)
[2020-02-17] MEDS: FLUTICASONE PROPIONATE 50 MCG/SPRAY 16 GM NASAL SPRAY NASAL SCH ×2 (08:47→16:36)
[2020-02-17 16:26] VITALS: BP 134/90
[2020-02-17] MEDS: OLANZapine 10 MG RAPDIS TABLET PO SCH (20:46)
[2020-02-17] MEDS: NICOTINE 21 MG/24 HOUR PATCH TD PRN (20:46)
[2020-02-18] MEDS: HALOPERIDOL 5 MG TABLET PO PRN ×3 (00:13→16:10)
[2020-02-18 04:11] VITALS: BP 129/76
[2020-02-18] MEDS: FLUTICASONE PROPIONATE 50 MCG/SPRAY 16 GM NASAL SPRAY NASAL SCH ×2 (08:29→16:13)
[2020-02-18] MEDS: CHOLECALCIFEROL (VIT D3) 1,000 UNITS [25 MCG] TABLET PO SCH ×2 (08:30→16:13)
[2020-02-18 10:00] VITALS: BP 116/70
[2020-02-18 17:27] VITALS: BP 121/74
[2020-02-18] MEDS: OLANZapine 10 MG RAPDIS TABLET PO SCH (20:50)
[2020-02-19] MEDS: HALOPERIDOL 5 MG TABLET PO PRN ×4 (02:15→20:44)
[2020-02-19 04:41] VITALS: BP 101/67
[2020-02-19] MEDS: FLUTICASONE PROPIONATE 50 MCG/SPRAY 16 GM NASAL SPRAY NASAL SCH ×2 (08:11→16:58)
[2020-02-19] MEDS: CHOLECALCIFEROL (VIT D3) 1,000 UNITS [25 MCG] TABLET PO SCH ×2 (08:11→16:58)
[2020-02-19 16:21] VITALS: BP 105/64
[2020-02-19] MEDS: OLANZapine 10 MG RAPDIS TABLET PO SCH (20:44)
[2020-02-20] MEDS: CHOLECALCIFEROL (VIT D3) 1,000 UNITS [25 MCG] TABLET PO SCH ×2 (08:21→16:34)
[2020-02-20] MEDS: FLUTICASONE PROPIONATE 50 MCG/SPRAY 16 GM NASAL SPRAY NASAL SCH ×2 (08:21→16:34)
[2020-02-20 08:22] VITALS: BP 121/62
[2020-02-20] MEDS: HALOPERIDOL 5 MG TABLET PO PRN ×2 (10:23→16:34)
[2020-02-20 16:11] VITALS: BP 128/75
[2020-02-20] MEDS: OLANZapine 10 MG RAPDIS TABLET PO SCH (20:18)
[2020-02-21 02:45] VITALS: BP 113/71
[2020-02-21] MEDS: FLUTICASONE PROPIONATE 50 MCG/SPRAY 16 GM NASAL SPRAY NASAL SCH ×3 (09:00→16:27)
[2020-02-21] MEDS: CHOLECALCIFEROL (VIT D3) 1,000 UNITS [25 MCG] TABLET PO SCH ×3 (09:00→16:27)
[2020-02-21] MEDS: HALOPERIDOL 5 MG TABLET PO PRN ×2 (12:26→19:16)
[2020-02-21] MEDS: NICOTINE 21 MG/24 HOUR PATCH TD PRN (12:40)
[2020-02-21 17:55] VITALS: BP 138/89
[2020-02-21] MEDS: OLANZapine 10 MG RAPDIS TABLET PO SCH (20:30)
[2020-02-21] MEDS ORDERED: LORazepam 2 MG/ML VIAL ONE (20:55)
[2020-02-21] MEDS ORDERED: DiphenhydrAMINE HCL 50 MG/ML VIAL ONE (20:55)
[2020-02-21] MEDS ORDERED: DiphenhydrAMINE HCL 50 MG/ML VIAL IM ONE (21:15)
[2020-02-21] MEDS ORDERED: HALOPERIDOL LACTATE 5 MG/ML VIAL IM ONE (21:15)
[2020-02-21] MEDS ORDERED: LORazepam 2 MG/ML VIAL IM ONE (21:15)
[2020-02-22 02:47] VITALS: BP 128/82
[2020-02-22] MEDS: HALOPERIDOL 5 MG TABLET PO PRN ×2 (09:41→22:10)
[2020-02-22] MEDS: CHOLECALCIFEROL (VIT D3) 1,000 UNITS [25 MCG] TABLET PO SCH ×2 (09:41→20:37)
[2020-02-22] MEDS: FLUTICASONE PROPIONATE 50 MCG/SPRAY 16 GM NASAL SPRAY NASAL SCH ×2 (10:33→20:37)
[2020-02-22] MEDS: NICOTINE 21 MG/24 HOUR PATCH TD PRN (12:51)
[2020-02-22 16:33] VITALS: BP 128/82
[2020-02-22] MEDS: OLANZapine 10 MG RAPDIS TABLET PO SCH (20:38)
[2020-02-23 04:33] VITALS: BP 122/77
[2020-02-23] MEDS: FLUTICASONE PROPIONATE 50 MCG/SPRAY 16 GM NASAL SPRAY NASAL SCH ×2 (08:17→17:09)
[2020-02-23] MEDS: CHOLECALCIFEROL (VIT D3) 1,000 UNITS [25 MCG] TABLET PO SCH ×2 (08:17→17:09)
[2020-02-23] MEDS: HALOPERIDOL 5 MG TABLET PO PRN ×2 (10:45→17:47)
[2020-02-23 17:21] VITALS: BP 112/78
[2020-02-23] MEDS: OLANZapine 10 MG RAPDIS TABLET PO SCH (20:58)
[2020-02-24 03:10] VITALS: BP 105/73
[2020-02-24] MEDS: FLUTICASONE PROPIONATE 50 MCG/SPRAY 16 GM NASAL SPRAY NASAL SCH ×2 (08:10→16:30)
[2020-02-24] MEDS: CHOLECALCIFEROL (VIT D3) 1,000 UNITS [25 MCG] TABLET PO SCH ×2 (08:10→16:29)
[2020-02-24] MEDS: HALOPERIDOL 5 MG TABLET PO PRN ×2 (09:17→22:10)
[2020-02-24 18:01] VITALS: BP 114/84
[2020-02-24] MEDS: OLANZapine 10 MG RAPDIS TABLET PO SCH (20:27)
[2020-02-25 03:08] VITALS: BP 102/74
[2020-02-25 08:26] VITALS: BP 111/63
[2020-02-25] MEDS: CHOLECALCIFEROL (VIT D3) 1,000 UNITS [25 MCG] TABLET PO SCH ×2 (08:38→17:00)
[2020-02-25] MEDS: FLUTICASONE PROPIONATE 50 MCG/SPRAY 16 GM NASAL SPRAY NASAL SCH ×2 (08:38→17:00)
[2020-02-25] MEDS: HALOPERIDOL 5 MG TABLET PO PRN ×2 (10:41→19:18)
[2020-02-25] MEDS: NICOTINE 21 MG/24 HOUR PATCH TD PRN (14:15)
[2020-02-25 16:04] VITALS: BP 123/79
[2020-02-25] MEDS: OLANZapine 10 MG RAPDIS TABLET PO SCH (20:14)
[2020-02-26] MEDS: HALOPERIDOL 5 MG TABLET PO PRN ×4 (04:35→21:04)
[2020-02-26] MEDS: FLUTICASONE PROPIONATE 50 MCG/SPRAY 16 GM NASAL SPRAY NASAL SCH ×2 (09:05→16:06)
[2020-02-26] MEDS: CHOLECALCIFEROL (VIT D3) 1,000 UNITS [25 MCG] TABLET PO SCH ×2 (09:06→16:06)
[2020-02-26 10:13] VITALS: BP 133/62
[2020-02-26 16:35] VITALS: BP 106/62
[2020-02-26] MEDS: OLANZapine 10 MG RAPDIS TABLET PO SCH (20:24)
[2020-02-27 02:30] VITALS: BP 101/74
[2020-02-27] MEDS: FLUTICASONE PROPIONATE 50 MCG/SPRAY 16 GM NASAL SPRAY NASAL SCH ×2 (08:15→16:01)
[2020-02-27] MEDS: CHOLECALCIFEROL (VIT D3) 1,000 UNITS [25 MCG] TABLET PO SCH ×2 (08:15→16:03)
[2020-02-27 08:20] VITALS: BP 111/83
[2020-02-27] MEDS: HALOPERIDOL 5 MG TABLET PO PRN (12:02)
[2020-02-27] MEDS: ACETAMINOPHEN 325 MG TABLET PO PRN (13:51)
[2020-02-27] MEDS: NICOTINE 21 MG/24 HOUR PATCH TD PRN (16:00)
[2020-02-27 16:02] VITALS: BP 138/80
[2020-02-27] MEDS: OLANZapine 10 MG RAPDIS TABLET PO SCH (20:26)
[2020-02-28] MEDS: HALOPERIDOL 5 MG TABLET PO PRN ×2 (01:34→12:55)
[2020-02-28 01:50] VITALS: BP 120/81
[2020-02-28] MEDS: CHOLECALCIFEROL (VIT D3) 1,000 UNITS [25 MCG] TABLET PO SCH ×2 (08:12→16:20)
[2020-02-28] MEDS: FLUTICASONE PROPIONATE 50 MCG/SPRAY 16 GM NASAL SPRAY NASAL SCH ×2 (08:12→16:20)
[2020-02-28 08:33] VITALS: BP 123/63
[2020-02-28 16:11] VITALS: BP 124/71
[2020-02-28] MEDS: NICOTINE 21 MG/24 HOUR PATCH TD PRN (16:50)
[2020-02-28] MEDS: OLANZapine 10 MG RAPDIS TABLET PO SCH (20:05)
[2020-02-29 03:04] VITALS: BP 118/67
[2020-02-29] MEDS: FLUTICASONE PROPIONATE 50 MCG/SPRAY 16 GM NASAL SPRAY NASAL SCH ×2 (08:20→17:04)
[2020-02-29] MEDS: CHOLECALCIFEROL (VIT D3) 1,000 UNITS [25 MCG] TABLET PO SCH ×2 (08:21→17:04)
[2020-02-29] MEDS: HALOPERIDOL 5 MG TABLET PO PRN (11:54)
[2020-02-29 16:08] VITALS: BP 109/61
[2020-02-29] MEDS: OLANZapine 10 MG RAPDIS TABLET PO SCH (20:40)
[2020-03-01 02:14] VITALS: BP 111/63
[2020-03-01] MEDS: CHOLECALCIFEROL (VIT D3) 1,000 UNITS [25 MCG] TABLET PO SCH ×2 (09:00→17:01)
[2020-03-01] MEDS: FLUTICASONE PROPIONATE 50 MCG/SPRAY 16 GM NASAL SPRAY NASAL SCH ×2 (09:00→17:02)
[2020-03-01 16:27] VITALS: BP 114/73
[2020-03-01] MEDS: HALOPERIDOL 5 MG TABLET PO PRN (17:01)
[2020-03-01] MEDS: NICOTINE 21 MG/24 HOUR PATCH TD PRN (18:11)
[2020-03-01] MEDS: OLANZapine 10 MG RAPDIS TABLET PO SCH (20:26)
[2020-03-02 00:05] VITALS: BP 124/68
[2020-03-02] MEDS: HALOPERIDOL 5 MG TABLET PO PRN ×4 (00:39→22:50)
[2020-03-02 08:25] VITALS: BP 118/77
[2020-03-02] MEDS: FLUTICASONE PROPIONATE 50 MCG/SPRAY 16 GM NASAL SPRAY NASAL SCH ×3 (08:45→16:53)
[2020-03-02] MEDS: CHOLECALCIFEROL (VIT D3) 1,000 UNITS [25 MCG] TABLET PO SCH ×3 (08:45→16:53)
[2020-03-02] MEDS: NICOTINE 21 MG/24 HOUR PATCH TD PRN (09:17)
[2020-03-02 16:37] VITALS: BP 124/73
[2020-03-02] MEDS ORDERED: DiphenhydrAMINE HCL 50 MG/ML VIAL IM ONE (20:00)
[2020-03-02] MEDS ORDERED: LORazepam 2 MG/ML VIAL IM ONE (20:00)
[2020-03-02] MEDS ORDERED: HALOPERIDOL LACTATE 5 MG/ML VIAL IM ONE (20:00)
[2020-03-02] MEDS: OLANZapine 10 MG RAPDIS TABLET PO SCH (20:45)
[2020-03-02 20:56] VITALS: BP 127/78
[2020-03-03] MEDS: CHOLECALCIFEROL (VIT D3) 1,000 UNITS [25 MCG] TABLET PO SCH ×2 (08:04→16:44)
[2020-03-03] MEDS: FLUTICASONE PROPIONATE 50 MCG/SPRAY 16 GM NASAL SPRAY NASAL SCH ×2 (08:04→16:44)
[2020-03-03 08:11] VITALS: BP 140/72
[2020-03-03] MEDS: HALOPERIDOL 5 MG TABLET PO PRN ×3 (09:46→20:59)
[2020-03-03] MEDS: NICOTINE 21 MG/24 HOUR PATCH TD PRN (15:07)
[2020-03-03 16:29] VITALS: BP 118/81
[2020-03-03] MEDS: ACETAMINOPHEN 325 MG TABLET PO PRN ×2 (17:10→22:30)
[2020-03-03] MEDS: OLANZapine 10 MG RAPDIS TABLET PO SCH (20:59)
[2020-03-04 03:25] VITALS: BP 110/78
[2020-03-04 08:17] VITALS: BP 112/67
[2020-03-04] MEDS: FLUTICASONE PROPIONATE 50 MCG/SPRAY 16 GM NASAL SPRAY NASAL SCH ×2 (08:17→16:15)
[2020-03-04] MEDS: CHOLECALCIFEROL (VIT D3) 1,000 UNITS [25 MCG] TABLET PO SCH ×2 (08:18→16:15)
[2020-03-04] MEDS: HALOPERIDOL 5 MG TABLET PO PRN (12:07)
[2020-03-04 16:33] VITALS: BP 120/70
[2020-03-04] MEDS: OLANZapine 10 MG RAPDIS TABLET PO SCH (20:59)
[2020-03-04] MEDS: NICOTINE 21 MG/24 HOUR PATCH TD PRN (22:20)
[2020-03-05 01:31] VITALS: BP 110/72
[2020-03-05] MEDS: HALOPERIDOL 5 MG TABLET PO PRN ×3 (01:51→23:51)
[2020-03-05] MEDS: CHOLECALCIFEROL (VIT D3) 1,000 UNITS [25 MCG] TABLET PO SCH ×2 (08:15→16:33)
[2020-03-05] MEDS: FLUTICASONE PROPIONATE 50 MCG/SPRAY 16 GM NASAL SPRAY NASAL SCH ×2 (08:15→16:32)
[2020-03-05 08:19] VITALS: BP 116/71
[2020-03-05] MEDS: NICOTINE 21 MG/24 HOUR PATCH TD PRN (12:43)
[2020-03-05 16:06] VITALS: BP 121/60
[2020-03-05 17:57] VITALS: BP 128/70
[2020-03-05] MEDS: ACETAMINOPHEN 325 MG TABLET PO PRN (17:57)
[2020-03-05] MEDS: OLANZapine 10 MG RAPDIS TABLET PO SCH (20:01)
[2020-03-06 04:01] VITALS: BP 120/68
[2020-03-06] MEDS: CHOLECALCIFEROL (VIT D3) 1,000 UNITS [25 MCG] TABLET PO SCH ×2 (09:07→16:14)
[2020-03-06] MEDS: FLUTICASONE PROPIONATE 50 MCG/SPRAY 16 GM NASAL SPRAY NASAL SCH ×2 (09:07→16:13)
[2020-03-06] MEDS: HALOPERIDOL 5 MG TABLET PO PRN (15:01)
[2020-03-06 16:09] VITALS: BP 129/71
[2020-03-06] MEDS: ACETAMINOPHEN 325 MG TABLET PO PRN (17:15)
[2020-03-06] MEDS: OLANZapine 10 MG RAPDIS TABLET PO SCH (20:11)
[2020-03-07 00:23] VITALS: BP 114/64
[2020-03-07] MEDS: CHOLECALCIFEROL (VIT D3) 1,000 UNITS [25 MCG] TABLET PO SCH ×2 (09:31→16:20)
[2020-03-07] MEDS: FLUTICASONE PROPIONATE 50 MCG/SPRAY 16 GM NASAL SPRAY NASAL SCH ×2 (09:31→16:21)
[2020-03-07] MEDS: NICOTINE 21 MG/24 HOUR PATCH TD PRN (12:21)
[2020-03-07] MEDS: HALOPERIDOL 5 MG TABLET PO PRN ×2 (12:21→23:46)
[2020-03-07 17:25] VITALS: BP 110/70
[2020-03-07] MEDS: OLANZapine 10 MG RAPDIS TABLET PO SCH (20:35)
[2020-03-07 23:45] VITALS: BP 123/83
[2020-03-07] MEDS: ACETAMINOPHEN 325 MG TABLET PO PRN (23:46)
[2020-03-08 03:07] VITALS: BP 123/83
[2020-03-08] MEDS: HALOPERIDOL 5 MG TABLET PO PRN ×3 (08:12→23:08)
[2020-03-08] MEDS: CHOLECALCIFEROL (VIT D3) 1,000 UNITS [25 MCG] TABLET PO SCH ×2 (08:12→16:00)
[2020-03-08] MEDS: FLUTICASONE PROPIONATE 50 MCG/SPRAY 16 GM NASAL SPRAY NASAL SCH ×2 (08:12→16:00)
[2020-03-08] MEDS: NICOTINE 21 MG/24 HOUR PATCH TD PRN (08:13)
[2020-03-08 16:11] VITALS: BP 100/72
[2020-03-08] MEDS: OLANZapine 10 MG RAPDIS TABLET PO SCH (20:26)
[2020-03-09 01:41] VITALS: BP 124/86
[2020-03-09] MEDS: CHOLECALCIFEROL (VIT D3) 1,000 UNITS [25 MCG] TABLET PO SCH ×2 (08:11→17:04)
[2020-03-09] MEDS: FLUTICASONE PROPIONATE 50 MCG/SPRAY 16 GM NASAL SPRAY NASAL SCH ×2 (08:11→17:05)
[2020-03-09 08:22] VITALS: BP 118/71
[2020-03-09] MEDS: HALOPERIDOL 5 MG TABLET PO PRN ×2 (10:38→17:04)
[2020-03-09] MEDS: NICOTINE 21 MG/24 HOUR PATCH TD PRN (10:41)
[2020-03-09 16:17] VITALS: BP 105/75
[2020-03-09 16:39] LABS: GLUCOMETER DEV NAME(LOC) BV3S.; GLUCOSE,POINT OF CARE 171 MG/DL (70-110)
[2020-03-09] MEDS: OLANZapine 10 MG RAPDIS TABLET PO SCH (20:54)
[2020-03-10 03:54] VITALS: BP 101/76
[2020-03-10] MEDS: FLUTICASONE PROPIONATE 50 MCG/SPRAY 16 GM NASAL SPRAY NASAL SCH ×2 (08:35→16:33)
[2020-03-10] MEDS: CHOLECALCIFEROL (VIT D3) 1,000 UNITS [25 MCG] TABLET PO SCH ×2 (08:37→16:34)
[2020-03-10 08:45] VITALS: BP 119/66
[2020-03-10] MEDS: HALOPERIDOL 5 MG TABLET PO PRN (10:42)
[2020-03-10] MEDS: NICOTINE 21 MG/24 HOUR PATCH TD PRN (10:42)
[2020-03-10 16:09] VITALS: BP 118/79
[2020-03-10] MEDS: OLANZapine 10 MG RAPDIS TABLET PO SCH (20:25)
[2020-03-11] MEDS: HALOPERIDOL 5 MG TABLET PO PRN ×3 (00:04→19:27)
[2020-03-11 00:14] VITALS: BP 105/73
[2020-03-11 08:28] VITALS: BP 107/70
[2020-03-11] MEDS: FLUTICASONE PROPIONATE 50 MCG/SPRAY 16 GM NASAL SPRAY NASAL SCH ×2 (08:52→17:16)
[2020-03-11] MEDS: CHOLECALCIFEROL (VIT D3) 1,000 UNITS [25 MCG] TABLET PO SCH ×2 (08:53→17:16)
[2020-03-11] MEDS: NICOTINE 21 MG/24 HOUR PATCH TD PRN (11:17)
[2020-03-11 16:29] VITALS: BP 100/60
[2020-03-11] MEDS: OLANZapine 10 MG RAPDIS TABLET PO SCH (20:31)
[2020-03-12 08:12] VITALS: BP 102/66
[2020-03-12] MEDS: FLUTICASONE PROPIONATE 50 MCG/SPRAY 16 GM NASAL SPRAY NASAL SCH ×2 (08:33→16:03)
[2020-03-12] MEDS: CHOLECALCIFEROL (VIT D3) 1,000 UNITS [25 MCG] TABLET PO SCH ×2 (08:33→16:02)
[2020-03-12] MEDS: NICOTINE 21 MG/24 HOUR PATCH TD PRN (10:53)
[2020-03-12] MEDS: HALOPERIDOL 5 MG TABLET PO PRN (10:53)
[2020-03-12 16:09] VITALS: BP 116/71
[2020-03-12] MEDS: OLANZapine 10 MG RAPDIS TABLET PO SCH (21:04)
[2020-03-13 02:10] VITALS: BP 110/76
[2020-03-13] MEDS: CHOLECALCIFEROL (VIT D3) 1,000 UNITS [25 MCG] TABLET PO SCH ×2 (09:22→16:27)
[2020-03-13] MEDS: FLUTICASONE PROPIONATE 50 MCG/SPRAY 16 GM NASAL SPRAY NASAL SCH ×2 (09:22→16:27)
[2020-03-13] MEDS: NICOTINE 21 MG/24 HOUR PATCH TD PRN (12:13)
[2020-03-13] MEDS: HALOPERIDOL 5 MG TABLET PO PRN ×2 (12:13→20:03)
[2020-03-13 16:19] VITALS: BP 108/58
[2020-03-13] MEDS: OLANZapine 10 MG RAPDIS TABLET PO SCH (20:03)
[2020-03-14 01:48] VITALS: BP 100/65
[2020-03-14] MEDS: FLUTICASONE PROPIONATE 50 MCG/SPRAY 16 GM NASAL SPRAY NASAL SCH ×2 (08:40→16:33)
[2020-03-14] MEDS: CHOLECALCIFEROL (VIT D3) 1,000 UNITS [25 MCG] TABLET PO SCH ×2 (08:40→16:26)
[2020-03-14] MEDS: HALOPERIDOL 5 MG TABLET PO PRN (14:56)
[2020-03-14] MEDS: OLANZapine 10 MG RAPDIS TABLET PO SCH (20:36)
[2020-03-15] MEDS: ACETAMINOPHEN 325 MG TABLET PO PRN (01:19)
[2020-03-15 02:54] VITALS: BP 100/72
[2020-03-15] MEDS: CHOLECALCIFEROL (VIT D3) 1,000 UNITS [25 MCG] TABLET PO SCH ×2 (09:17→16:49)
[2020-03-15] MEDS: FLUTICASONE PROPIONATE 50 MCG/SPRAY 16 GM NASAL SPRAY NASAL SCH ×2 (09:17→16:49)
[2020-03-15] MEDS: HALOPERIDOL 5 MG TABLET PO PRN ×2 (10:43→16:49)
[2020-03-15 16:04] VITALS: BP 108/57
[2020-03-15] MEDS: OLANZapine 10 MG RAPDIS TABLET PO SCH (20:42)
[2020-03-16 01:40] VITALS: BP 103/67
[2020-03-16] MEDS: FLUTICASONE PROPIONATE 50 MCG/SPRAY 16 GM NASAL SPRAY NASAL SCH ×2 (09:00→16:31)
[2020-03-16] MEDS: CHOLECALCIFEROL (VIT D3) 1,000 UNITS [25 MCG] TABLET PO SCH ×2 (09:00→16:31)
[2020-03-16 16:05] VITALS: BP 100/61
[2020-03-16] MEDS: HALOPERIDOL 5 MG TABLET PO PRN (16:31)
[2020-03-16] MEDS: OLANZapine 10 MG RAPDIS TABLET PO SCH (20:35)
[2020-03-17 04:31] VITALS: BP 99/65
[2020-03-17] MEDS: CHOLECALCIFEROL (VIT D3) 1,000 UNITS [25 MCG] TABLET PO SCH ×2 (08:07→16:54)
[2020-03-17] MEDS: FLUTICASONE PROPIONATE 50 MCG/SPRAY 16 GM NASAL SPRAY NASAL SCH ×2 (08:07→16:55)
[2020-03-17] MEDS: HALOPERIDOL 5 MG TABLET PO PRN ×2 (10:59→16:54)
[2020-03-17 16:16] VITALS: BP 129/72
[2020-03-17] MEDS: ACETAMINOPHEN 325 MG TABLET PO PRN (17:49)
[2020-03-17] MEDS: OLANZapine 10 MG RAPDIS TABLET PO SCH (21:18)
[2020-03-18 01:37] VITALS: BP 120/77
[2020-03-18] MEDS: FLUTICASONE PROPIONATE 50 MCG/SPRAY 16 GM NASAL SPRAY NASAL SCH ×2 (08:12→21:05)
[2020-03-18] MEDS: CHOLECALCIFEROL (VIT D3) 1,000 UNITS [25 MCG] TABLET PO SCH ×2 (08:14→21:05)
[2020-03-18] MEDS: HALOPERIDOL 5 MG TABLET PO PRN (10:57)
[2020-03-18] MEDS: OLANZapine 10 MG RAPDIS TABLET PO SCH (21:05)
[2020-03-19 01:13] VITALS: BP 116/77
[2020-03-19] MEDS: CHOLECALCIFEROL (VIT D3) 1,000 UNITS [25 MCG] TABLET PO SCH ×2 (09:02→16:20)
[2020-03-19] MEDS: FLUTICASONE PROPIONATE 50 MCG/SPRAY 16 GM NASAL SPRAY NASAL SCH ×2 (09:02→16:21)
[2020-03-19] MEDS: HALOPERIDOL 5 MG TABLET PO PRN (10:55)
[2020-03-19 16:51] VITALS: BP 114/71
[2020-03-19] MEDS: OLANZapine 10 MG RAPDIS TABLET PO SCH (20:25)
[2020-03-20] MEDS: HALOPERIDOL 5 MG TABLET PO PRN ×2 (01:51→16:39)
[2020-03-20 04:32] VITALS: BP 102/75
[2020-03-20] MEDS: CHOLECALCIFEROL (VIT D3) 1,000 UNITS [25 MCG] TABLET PO SCH ×2 (10:24→16:39)
[2020-03-20] MEDS: FLUTICASONE PROPIONATE 50 MCG/SPRAY 16 GM NASAL SPRAY NASAL SCH ×2 (10:25→16:39)
[2020-03-20] MEDS: NICOTINE 21 MG/24 HOUR PATCH TD PRN (10:32)
[2020-03-20 16:01] VITALS: BP 116/76
[2020-03-20] MEDS: OLANZapine 10 MG RAPDIS TABLET PO SCH (20:18)
[2020-03-21 06:10] VITALS: BP 106/60
[2020-03-21 08:31] VITALS: BP 113/74
[2020-03-21] MEDS: CHOLECALCIFEROL (VIT D3) 1,000 UNITS [25 MCG] TABLET PO SCH ×2 (08:35→16:24)
[2020-03-21] MEDS: FLUTICASONE PROPIONATE 50 MCG/SPRAY 16 GM NASAL SPRAY NASAL SCH ×2 (08:36→16:25)
[2020-03-21] MEDS: HALOPERIDOL 5 MG TABLET PO PRN (16:18)
[2020-03-21] MEDS: NICOTINE 21 MG/24 HOUR PATCH TD PRN (16:21)
[2020-03-21] MEDS: OLANZapine 10 MG RAPDIS TABLET PO SCH (20:36)
[2020-03-22 02:12] VITALS: BP 127/77
[2020-03-22] MEDS: CHOLECALCIFEROL (VIT D3) 1,000 UNITS [25 MCG] TABLET PO SCH ×2 (08:43→17:05)
[2020-03-22] MEDS: FLUTICASONE PROPIONATE 50 MCG/SPRAY 16 GM NASAL SPRAY NASAL SCH ×2 (08:43→17:04)
[2020-03-22] MEDS: HALOPERIDOL 5 MG TABLET PO PRN (14:37)
[2020-03-22 16:08] VITALS: BP 121/76
[2020-03-22] MEDS: OLANZapine 10 MG RAPDIS TABLET PO SCH (21:40)
[2020-03-23 01:21] VITALS: BP 111/72
[2020-03-23] MEDS: FLUTICASONE PROPIONATE 50 MCG/SPRAY 16 GM NASAL SPRAY NASAL SCH ×2 (08:58→16:49)
[2020-03-23] MEDS: CHOLECALCIFEROL (VIT D3) 1,000 UNITS [25 MCG] TABLET PO SCH ×2 (08:58→16:49)
[2020-03-23 16:22] VITALS: BP 124/74
[2020-03-23] MEDS: OLANZapine 10 MG RAPDIS TABLET PO SCH (20:10)
[2020-03-24 01:51] VITALS: BP 117/76
[2020-03-24] MEDS: CHOLECALCIFEROL (VIT D3) 1,000 UNITS [25 MCG] TABLET PO SCH ×2 (09:16→16:25)
[2020-03-24] MEDS: FLUTICASONE PROPIONATE 50 MCG/SPRAY 16 GM NASAL SPRAY NASAL SCH ×2 (09:16→16:24)
[2020-03-24] MEDS: HALOPERIDOL 5 MG TABLET PO PRN ×3 (10:51→23:49)
[2020-03-24] MEDS: NICOTINE 21 MG/24 HOUR PATCH TD PRN (13:53)
[2020-03-24 16:10] VITALS: BP 113/82
[2020-03-24] MEDS: OLANZapine 10 MG RAPDIS TABLET PO SCH (20:24)
[2020-03-25 01:51] VITALS: BP 120/77
[2020-03-25] MEDS: CHOLECALCIFEROL (VIT D3) 1,000 UNITS [25 MCG] TABLET PO SCH ×2 (08:09→16:23)
[2020-03-25] MEDS: HALOPERIDOL 5 MG TABLET PO PRN (08:09)
[2020-03-25] MEDS: FLUTICASONE PROPIONATE 50 MCG/SPRAY 16 GM NASAL SPRAY NASAL SCH ×2 (08:12→16:23)
[2020-03-25 16:17] VITALS: BP 118/83
[2020-03-25] MEDS: OLANZapine 10 MG RAPDIS TABLET PO SCH (21:14)
[2020-03-26] MEDS: HALOPERIDOL 5 MG TABLET PO PRN ×3 (00:57→20:19)
[2020-03-26 01:33] VITALS: BP 102/62
[2020-03-26] MEDS: FLUTICASONE PROPIONATE 50 MCG/SPRAY 16 GM NASAL SPRAY NASAL SCH ×2 (08:15→16:26)
[2020-03-26] MEDS: CHOLECALCIFEROL (VIT D3) 1,000 UNITS [25 MCG] TABLET PO SCH ×2 (08:15→16:26)
[2020-03-26 08:19] VITALS: BP 116/71
[2020-03-26 16:15] VITALS: BP 107/74
[2020-03-26] MEDS: OLANZapine 10 MG RAPDIS TABLET PO SCH (20:19)
[2020-03-27 08:20] VITALS: BP 112/69
[2020-03-27] MEDS: CHOLECALCIFEROL (VIT D3) 1,000 UNITS [25 MCG] TABLET PO SCH ×2 (10:00→16:21)
[2020-03-27] MEDS: FLUTICASONE PROPIONATE 50 MCG/SPRAY 16 GM NASAL SPRAY NASAL SCH ×2 (10:00→16:21)
[2020-03-27 16:08] VITALS: BP 105/67
[2020-03-27] MEDS: OLANZapine 10 MG RAPDIS TABLET PO SCH (21:04)
[2020-03-27] MEDS: HALOPERIDOL 5 MG TABLET PO PRN (21:04)
[2020-03-28 06:18] VITALS: BP 108/66
[2020-03-28] MEDS: FLUTICASONE PROPIONATE 50 MCG/SPRAY 16 GM NASAL SPRAY NASAL SCH ×2 (08:45→16:31)
[2020-03-28] MEDS: CHOLECALCIFEROL (VIT D3) 1,000 UNITS [25 MCG] TABLET PO SCH ×2 (08:46→16:31)
[2020-03-28] MEDS: HALOPERIDOL 5 MG TABLET PO PRN (12:50)
[2020-03-28 16:03] VITALS: BP 106/71
[2020-03-28] MEDS: OLANZapine 10 MG RAPDIS TABLET PO SCH (20:39)
[2020-03-29 01:44] VITALS: BP 103/70
[2020-03-29] MEDS ORDERED: TUBERCULIN, PURIFIED PROTEIN DERIVATIVE 5 TU/0.1 ML SYRINGE ID ONE (08:15)
[2020-03-29] MEDS: CHOLECALCIFEROL (VIT D3) 1,000 UNITS [25 MCG] TABLET PO SCH ×2 (10:43→16:39)
[2020-03-29] MEDS: FLUTICASONE PROPIONATE 50 MCG/SPRAY 16 GM NASAL SPRAY NASAL SCH ×2 (10:43→16:43)
[2020-03-29 17:17] VITALS: BP 129/66
[2020-03-29] MEDS: OLANZapine 10 MG RAPDIS TABLET PO SCH (20:23)
[2020-03-30 05:40] VITALS: BP 110/67
[2020-03-30] MEDS: CHOLECALCIFEROL (VIT D3) 1,000 UNITS [25 MCG] TABLET PO SCH ×2 (09:42→16:53)
[2020-03-30] MEDS: FLUTICASONE PROPIONATE 50 MCG/SPRAY 16 GM NASAL SPRAY NASAL SCH ×2 (09:42→16:54)
[2020-03-30 09:58] VITALS: BP 136/96
[2020-03-30 16:00] VITALS: BP 121/90
[2020-03-30] MEDS: HALOPERIDOL 5 MG TABLET PO PRN (16:53)
[2020-03-30] MEDS: OLANZapine 10 MG RAPDIS TABLET PO SCH (20:11)
[2020-03-31 05:44] VITALS: BP 107/60
[2020-03-31 08:03] VITALS: BP 108/62
[2020-03-31] MEDS: CHOLECALCIFEROL (VIT D3) 1,000 UNITS [25 MCG] TABLET PO SCH ×2 (09:13→16:11)
[2020-03-31] MEDS: FLUTICASONE PROPIONATE 50 MCG/SPRAY 16 GM NASAL SPRAY NASAL SCH ×2 (09:13→16:11)
[2020-03-31] MEDS: HALOPERIDOL 5 MG TABLET PO PRN (09:52)
[2020-03-31 16:34] VITALS: BP 120/80
[2020-03-31] MEDS: OLANZapine 10 MG RAPDIS TABLET PO SCH (20:16)
[2020-04-01 01:37] VITALS: BP 100/78
[2020-04-01] MEDS: HALOPERIDOL 5 MG TABLET PO PRN ×3 (02:14→20:03)
[2020-04-01 08:15] VITALS: BP 110/63
[2020-04-01] MEDS: CHOLECALCIFEROL (VIT D3) 1,000 UNITS [25 MCG] TABLET PO SCH ×2 (08:44→16:49)
[2020-04-01] MEDS: FLUTICASONE PROPIONATE 50 MCG/SPRAY 16 GM NASAL SPRAY NASAL SCH ×2 (08:44→16:49)
[2020-04-01 16:24] VITALS: BP 129/56
[2020-04-01] MEDS: OLANZapine 10 MG RAPDIS TABLET PO SCH (20:03)
[2020-04-02] MEDS: CHOLECALCIFEROL (VIT D3) 1,000 UNITS [25 MCG] TABLET PO SCH ×2 (08:14→16:22)
[2020-04-02] MEDS: FLUTICASONE PROPIONATE 50 MCG/SPRAY 16 GM NASAL SPRAY NASAL SCH ×2 (08:14→16:22)
[2020-04-02 08:16] VITALS: BP 110/76
[2020-04-02 16:05] VITALS: BP 112/79
[2020-04-02] MEDS: OLANZapine 10 MG RAPDIS TABLET PO SCH (20:34)
[2020-04-03] MEDS: CHOLECALCIFEROL (VIT D3) 1,000 UNITS [25 MCG] TABLET PO SCH (08:39)
[2020-04-03] MEDS: FLUTICASONE PROPIONATE 50 MCG/SPRAY 16 GM NASAL SPRAY NASAL SCH (08:39)
== END 2020-04-03 12:35 | disposition home or self-care (01) | DRG 750 ==
LOC: B3A 13:44
PROVIDERS: ADMIT Psychiatry & Neurology Psychiatry; ATTEND Psychiatry & Neurology Psychiatry
DX: F25.1 Schizoaffective disorder, depressive type (principal); R45.851 Suicidal ideations; E55.9 Vitamin D deficiency, unspecified; J30.9 Allergic rhinitis, unspecified; F15.90 Other stimulant use, unspecified, uncomplicated; Z79.899 Other long term (current) drug therapy; Z59.0 Homelessness
CPT/HCPCS: 80307; 83036; J1200; J1630; J2060